=== PATIENT | female | born 2000 | race Caucasian/White ===

== ENCOUNTER 2021-08-27 14:54 | Observation (INO) | payer BC, OTHER ==
--- OUTSIDE RECORDS SUMMARY | 2021-08-27 14:56 | XMS REPORT | Continuity of Care Document ---
:2000 Author Organization [facility] t Address [address] [place] [address] Dr. Meneses[address] [place] [address] Care Team Providers Name Role Phone Pcp, Does Not Have A Primary Care Physician PANFILO Attending Clinician Unavailable Panfilo HEATON Attending Clinician Caroline IVORY Attending Clinician Doctor Unassigned, Name Attending Clinician Unavailable Payers Payer Name Policy Type Policy Number Effective Date Expiration Date S [facility] [id number] 2016 00:00:00 Problems Condition Condition Condition Status Onset Resolution Last Treating Co mments Source Name Details Category Date Date Treatment Clinician Date No known No known Disease Unive rs active active ity of problems problems [facility] Allergies, Adverse Reactions, Alerts Allergy Allergy Status Severity Reaction(s) Onset Inactive Treating Comm ents Source Name Type Date Date Clinician NO KNOWN Drug Active Univers ALLERGIE Class ity of S [facility] Social History Social Habit Start Date Stop Date Quantity Comments Source Tobacco use and 2021-07-16 2021-07-16 Never used [facility] exposure 00:00:00 00:00:00 [facility] Sex Assigned At [birth year] [facility] 00:00:00 00:00:00 [facility] Smoking Status Start Date Stop Date Source Unknown if ever smoked [facility] Never smoker [facility] Medications Ordered Filled Start Stop Current Ordering Indication Dosage Frequency Signature Comments Components Source Medication Medication Date Date Medication? Clinician (SIG) Name Name sulfamethox 2020-08- Yes [id number] 1{tbl} Take 1 Univers azole-trime 2-14 18 tablet by it y 00:00: 05:59 mouth 2 [place] (BACTRIM 00 :00 (two) Medical DS) 800-160 times Branch mg per daily for tablet 3 days. Vital Signs Vital Name Observation Time Observation Value Comments Source Systolic blood 2021-07-16 17:10:00 107 mm[Hg] Univer sity of pressure [facility] Diastolic blood 2021-07-16 17:10:00 72 mm[Hg] Unive rsity of [facility] Heart rate 2021-07-16 17:10:00 72 /min [facility] Body temperature 2021-07-16 17:10:00 36.72 Rashmi [facility] Respiratory rate 2021-07-16 17:10:00 16 /min [facility] Body height 2021-07-16 17:10:00 160 cm [facility] Body weight 2021-07-16 17:10:00 55.792 kg [facility] BMI 2021-07-16 17:10:00 21.79 kg/m2 [facility] Oxygen saturation in 2021-07-16 17:10:00 99 /min [facility] Arterial blood by [facility] Pulse oximetry Branch Procedures Procedure Date / Time Performed Performing Clinician Sour e POCT TEST 2021-07-16 17:28:00 Santa Whittaker [facility] POCT URINALYSIS 2021-07-16 17:12:00 Santa Whittaker [place] o f [facility] CONSENT/REFUSAL FOR 2021-07-16 16:54:13 Doctor Unassigned, No [facility] DIAGNOSIS AND Name Medical Branch TREATMENT ASSIGNMENT OF BENEFITS 2021-07-16 16:53:52 Doctor Unassigned, No [facility] Encounters Start End Encounter Admission Attending Care Care Encounter Source Date/Time Date/Time Type Type Clinicians Facility Department ID 2021-07-16 2021-07-16 Outpatient R [facility]ELAC[facility] [id number] [facility] 11:00:00 11:28:58 SANTA seng [facility] 2021-07-16 2021-07-16 Urgent aSnta Whittaker [facility] [id number] Univers 10:56:11 11:28:58 Care [facility] [id number] ity of [place] [id number] Patrice as JOSE?BLEA [phone] [place] CARLY [address] [facility] 2021-07-16 2021-07-16 Letter Doctor GARY [id number] Univers 00:00:00 00:00:00 (Out) Unassigned, AMPARO [id number] [facility] [id number] Patrice as [phone] [facility] [address] Branch 2021-07-16 2021-07-16 Orders Doctor GARY [id number] Univers 00:00:00 00:00:00 Only Unassigned, AMAPRO [id number] [facility] [id number] Patrice as [phone] [facility] [address] Results Test Description Test Time Test Comments Results Result Comments Source POCT TEST 2021-07-16 17:29:00 Test Item Value Reference Range Interpretation Comme nts POCT PREG (test code = 1605) Negative On board controls acceptable with C Line Yes (test code = 3574) POCT PREG LOT # (test code = 3575) POCT PREG TEST DATE (test code = 3576) TELMA (test code = TELMA) accurate development and interpretation of all internal controls Lab Interpretation (test code = 68830-2) [facility] URINALYSIS W SPECIFIC [id number] 17:13:00 Test Item Value Reference Range Interpretation Comments POCT U SP GRAV (test 1.00 mg/dl 1.005-1.025 A code = 3255) POCT PH U (test code = 7 mg/dl 5-8 3254) POCT U LEUK EST (test ++ Negative - code = 3263) Negative POCT U NIT (test code negative Negative - = 3262) Negative POCT U PROT (test code trace Negative - = 3259) Negative POCT U GLU (test code negative Negative - = 3256) Negative POCT U KETONE (test negative Negative - code = 3258) Negative POCT U UROBILI (test normal 0.2-1 code = 3260) POCT U BILI (test code negative Negative - = 3261) Negative POCT U BLD (test code about 250 Negative - = 3257) Negative POCT U COLOR (test yellow code = 3266) POCT U APPEAR (test cloudy code = 3267) TELMA (test code = TELMA) accurate development and interpretation of all internal controls Lab Interpretation Abnormal (test code = 40939-3) [facility]
[2021-08-27 15:38] LABS: Urine Blood 2+ (Negative); Urine Glucose Negative (Negative); Urine Protein Negative (Negative); Urine pH 5.5 (5.0-7.0)
[2021-08-27] MEDS ORDERED: ONDANSETRON 4 MG/2 ML VIAL ONE (15:48)
[2021-08-27] MEDS ORDERED: KETOROLAC 30 MG/ML INJ ONE (15:49)
[2021-08-27] MEDS ORDERED: NA CHLORIDE 0.9% 1,000 ML ONE ×2 (15:49→17:25)
[2021-08-27 16:02] LABS: Absolute Lymphocytes (CBC) 1.8 K/uL (0.7-4.9); Lymphocytes % 23.4 % (15.3-44.8); MPV 8.9 fL (7.6-11.3); RBC Red Blood Cell Count 4.11 M/uL (3.86-4.86)
[2021-08-27 16:16] LABS: Albumin 3.7 g/dL (3.4-5.0); Bilirubin Direct 0.1 mg/dL (0-0.2); Bilirubin Total 0.4 mg/dL (0.2-1.0); Potassium 3.4 mmol/L (3.5-5.1)
--- NOTE | 2021-08-27 16:21 | RAD REPORT ---
EXAM DESCRIPTION: CTAbdomen Pelvis W Contrast - 08/27/2021 4:13 pm CLINICAL HISTORY: Abdominal pain. ABD PAIN COMPARISON: No comparisons TECHNIQUE: Biphasic CT imaging of the abdomen and pelvis was performed with 100 ml non-ionic IV cont rast. All CT scans are performed using dose optimization technique as appropriate and may include automated exposure control or mA/KV adjustment according to patient size. FINDINGS: The lung bases are clear. The liver, spleen, pancreas, adrenal glands and kidneys are within normal limits. No bowel obstruction, free air, free fluid or abscess. The appendix is dilated to 10 mm in the right lower quadrant likely representing acute appendicitis. No evidence of significant lymphadenopathy. No suspicious bony findings. IMPRESSION: Early acute appendicitis suspected.
[2021-08-27] MEDS ORDERED: METRONIDAZOLE 500mg IVPB 500 MG/100 ML BAG IV ONE (17:25)
--- NOTE | 2021-08-27 17:45 | ER ---
Nurse's Notes [facility] Name: Mara Ramos Age: 20 yrs Sex: Female : 2000 Arrival Date: 08/27/2021 Time: 14:57 Bed 19 Private MD: Diagnosis: Unspecified acute appendicitis Presentation: 08/27 15:19 Chief complaint: Patient states: Pt presents to ed for c/o RLQ pain that began at 0400 ab2 this morning. Pt took ibuprrofen DIRECTOR OF ACADEMIC. Pt denies n/v/d. Coronavirus screen: Vaccine status: Patient reports being unvaccinated. Client denies travel out of the [place] in the last 14 days. At this time, the client does not indicate any symptoms associated with coronavirus-19. Ebola Screen: Patient negative for fever greater than or equal to 101.5 degrees Fahrenheit, and additional compatible Ebola Virus Disease symptoms Patient denies exposure to infectious person. Patient denies travel to an Ebola-affected area in the 21 days before illness onset. No symptoms or risks identified at this time. Initial Sepsis Screen: Does the patient meet any 2 criteria? No. Patient's initial sepsis screen is negative. Does the patient have a suspected source of infection? No. Patient's initial sepsis screen is negative. Risk Assessment: Do you want to hurt yourself or someone else? Patient reports no desire to harm self or others. Onset of symptoms was August 27, 2021 at 04:00. 15:19 Method Of Arrival: Ambulatory ab2 15:19 Acuity: NATHALIE 3 ab2 Triage Assessment: 15:22 General: Appears in no apparent distress. comfortable, Behavior is calm, cooperative, ab2 appropriate for age. 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 - Social history:: Smoking status: Patient denies any tobacco usage or history of. Screenin:22 Abuse screen: Denies threats or abuse. Denies injuries from another. Nutritional ab2 screening: No deficits noted. Tuberculosis screening: No symptoms or risk factors identified. Fall Risk None identified. Assessment: 16:04 General: Appears in no apparent distress. comfortable, Behavior is calm, cooperative, jd3 appropriate for age. Pain: Complains of pain in right lower quadrant Quality of pain is described as aching, tender. Neuro: Level of Consciousness is awake, alert, obeys commands, Oriented to person, place, time, situation. Cardiovascular: Denies chest pain, Capillary refill < 3 seconds Patient's skin is warm and dry. Respiratory: Airway is patent Respiratory effort is even, unlabored, Respiratory pattern is regular, symmetrical, Denies cough, shortness of breath. GI: Abdomen is flat, non-distended, Bowel sounds present X 4 quads. Abd is soft X 4 quads Abdomen is tender to palpation in right lower quadrant Reports lower abdominal pain, Patient currently denies constipation, diarrhea, nausea, vomiting. : No signs and/or symptoms were reported regarding the genitourinary system. EENT: No signs and/or symptoms were reported regarding the EENT system. Derm: Skin is intact, Skin is dry, Skin is normal, Skin temperature is warm. Musculoskeletal: Circulation, motion, and sensation intact. Range of motion: intact in all extremities. 17:32 Reassessment: Patient appears in no apparent distress at this time. No changes from jd3 previously documented assessment. Patient and/or family updated on plan of care and expected duration. Pain level reassessed. Patient is alert, oriented x 3, equal unlabored respirations, skin warm/dry/pink. 19:37 General: Appears in no apparent distress. comfortable, Behavior is calm, cooperative, al4 appropriate for age. Pain: Complains of pain in right lower quadrant. Neuro: Level of Consciousness is awake, alert, obeys commands, Oriented to person, place, time, situation. Cardiovascular: Capillary refill < 3 seconds Patient's skin is warm and dry. Respiratory: Airway is patent Respiratory effort is even, unlabored, Respiratory pattern is regular, symmetrical, Denies cough, shortness of breath. GI: Abdomen is flat, non-distended. : No signs and/or symptoms were reported regarding the genitourinary system. EENT: No signs and/or symptoms were reported regarding the EENT system. Derm: Skin is intact, Skin is dry, Skin is normal, Skin temperature is warm. Musculoskeletal: Circulation, motion, and sensation intact. Range of motion: intact in all extremities. Vital Signs: 15:19 BP 119 / 67; Pulse 94; Resp 16; Temp 97.9; Pulse Ox 100% ; Weight 54.43 kg; Height 5 ab2 ft. 3 in. (160.02 cm); Pain 7/10; 17:33 BP 114 / 71; Pulse 86; Resp 16 S; Pulse Ox 100% on R/A; jd3 18:43 BP 110 / 66; Pulse 71; Resp 18 S; Pulse Ox 99% on R/A; jd3 19:30 BP 106 / 67; Pulse 67; Resp 18; Pulse Ox 98% ; al4 15:19 Body Mass Index 21.26 (54.43 kg, 160.02 cm) ab2 ED Course: 14:57 Patient arrived in ED. as 15:21 Triage completed. ab2 15:22 Arm band placed on right wrist. ab2 15:31 [facility]C [facility] kb 15:31 Mariah Christina MD is Attending Physician. kb 15:44 Wyatt Grimes RN is Primary Nurse. jd3 16:04 Inserted saline lock: 22 gauge in left antecubital area, using aseptic technique. jd3 16:05 Patient has correct armband on for positive identification. Bed in low position. Call jd3 light in reach. Side rails up X 1. Adult w/ patient. Pulse ox on. NIBP on. 16:13 CT Abd/Pelvis - IV Contrast Only In Process Unspecified. EDMS 17:43 Francisco Guaman MD is Hospitalizing Provider. kb 20:00 No provider procedures requiring assistance completed. Patient admitted, IV remains in al4 place. Administered Medications: 16:04 Drug: NS 0.9% 1000 ml Route: IV; Rate: 1000 ml; Site: left antecubital; jd3 17:00 Follow up: Response: No adverse reaction; IV Status: Completed infusion jd3 16:04 Drug: Zofran (Ondansetron) 4 mg Route: IVP; Site: left antecubital; jd3 17:00 Follow up: Response: No adverse reaction jd3 16:04 Drug: Ketorolac 15 mg Route: IVP; Site: left antecubital; jd3 17:00 Follow up: Response: No adverse reaction jd3 17:31 Drug: Flagyl (metroNIDAZOLE) 500 mg Volume: 100 ml; Route: IVPB; Rate: 200 ml/hr; jd3 Infused Over: 30 mins; Site: left antecubital; 18:49 Follow up: Response: No adverse reaction; IV Status: Completed infusion jd3 17:32 Drug: NS 0.9% 1000 ml Route: IV; Rate: 125 ml/hr; Site: left antecubital; jd3 18:49 Follow up: Response: No adverse reaction; IV Status: Infusion continued upon admission jd3 18:41 Drug: Mefoxin (cefOXitin) 1 grams Route: IVPB; Infused Over: 30 mins; Site: left jd3 antecubital; Outcome: 17:44 Decision to Hospitalize by Provider. kirill 20:00 Admitted to Med/surg accompanied by nurse. margot 20:00 Admitted to Med/surg Report called to report called by CACHOROR Mcfarlane 20:00 Condition: stable 20:00 Instructed on the need for admit. 20:08 Patient left the ED. mw2 Signatures: Dispatcher [employer] EDMI Antonina Lam FNP-C FNP-Gretchen Atkins Jonathon, RN RN Khadra Rooney mw2 Ryland Alexander al4 Ryland Anderson
--- NOTE | 2021-08-27 17:45 | EDPHYS ---
Physician Documentation [facility] Name: Mara Ramos Age: 20 yrs Sex: Female : 2000 Arrival Date: 08/27/2021 Time: 14:57 Bed 19 Private MD: ED Physician Mariah Christina HPI: 08/27 16:19 This 20 yrs old Female presents to ER via Ambulatory with complaints of Abdominal Pain. kb 16:19 The patient presents with abdominal pain right lower quadrant. Onset: The kb symptoms/episode began/occurred last night. The symptoms do not radiate. Associated signs and symptoms: none. The symptoms are described as constant. Modifying factors: The symptoms are alleviated by nothing, the symptoms are aggravated by movement, pressure, walking. Severity of pain: At its worst the pain was moderate in the emergency department the pain is unchanged. The patient has not experienced similar symptoms in the past. The patient has not recently seen a physician. 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 - Social history:: Smoking status: Patient denies any tobacco usage or history of. ROS: 16:18 Constitutional: Negative for fever, chills, and weight loss. kb 16:18 Abdomen/GI: Positive for abdominal pain, Negative for nausea, vomiting, and diarrhea. 16:18 All other systems are negative. Exam: 16:18 Constitutional: This is a well developed, well nourished patient who is awake, alert, kb and in no acute distress. Head/Face: Normocephalic, atraumatic. ENT: Moist Mucous membranes Cardiovascular: Regular rate and rhythm with a normal S1 and S2. No gallops, murmurs, or rubs. No pulse deficits. Respiratory: Respirations even and unlabored. No increased work of breathing. Talking in full sentences Skin: Warm, dry with normal turgor. Normal color. MS/ Extremity: Pulses equal, no cyanosis. Neurovascular intact. Full, normal range of motion. Neuro: Awake and alert, GCS 15, oriented to person, place, time, and situation. Moves all extremities. Normal gait. Psych: Awake, alert, with orientation to person, place and time. Behavior, mood, and affect are within normal limits. 16:18 Abdomen/GI: Inspection: abdomen appears normal, Bowel sounds: normal, in all quadrants, Palpation: soft, in all quadrants, mild abdominal tenderness, in the right upper quadrant and left lower quadrant, moderate abdominal tenderness, in the right lower quadrant. Vital Signs: 15:19 BP 119 / 67; Pulse 94; Resp 16; Temp 97.9; Pulse Ox 100% ; Weight 54.43 kg; Height 5 ab2 ft. 3 in. (160.02 cm); Pain 7/10; 17:33 BP 114 / 71; Pulse 86; Resp 16 S; Pulse Ox 100% on R/A; jd3 18:43 BP 110 / 66; Pulse 71; Resp 18 S; Pulse Ox 99% on R/A; jd3 19:30 BP 106 / 67; Pulse 67; Resp 18; Pulse Ox 98% ; al4 15:19 Body Mass Index 21.26 (54.43 kg, 160.02 cm) ab2 MDM: 15:31 Patient medically screened. kb 16:18 Data reviewed: vital signs, nurses notes. Data interpreted: Pulse oximetry: on room air kb is 100 %. Interpretation: normal. 16:29 Counseling: I had a detailed discussion with the patient and/or guardian regarding: the historical points, exam findings, and any diagnostic results supporting the discharge/admit diagnosis, lab results, radiology results, the need for further work-up and treatment in the hospital. Physician consultation: Francisco Guaman MD was called at 16:29. 16:50 ED course: Last meal approx 1430. kb 17:10 Physician consultation: Francisco Guaman MD paged again. kb 17:43 Physician consultation: Francisco Guaman MD was contacted at 17:43, regarding admission, to the medical/surgical unit. patient's condition, and will see patient in OR. 17:47 ED course: Discussed with housecleaner floor. Dr Guaman will do surgery at 0600 tomorrow morning. . 08/27 15:31 Order name: Basic Metabolic Panel; Complete Time: 16:18 kb 08/27 15:31 Order name: CBC with Diff; Complete Time: 16:15 kb 08/27 15:31 Order name: Hepatic Function; Complete Time: 16:18 kb 08/27 15:31 Order name: Lipase; Complete Time: 16:18 kb 08/27 15:37 Order name: Urine Dipstick-Ancillary; Complete Time: 15:40 EDMS 08/27 15:38 Order name: Urine --Ancillary (enter results); Complete Time: 15:44 bd 08/27 15:37 Order name: CT Abd/Pelvis - IV Contrast Only; Complete Time: 16:25 kb 08/27 17:15 Order name: COVID-19 SARS RT PCR (Document "Date of Onset" if Symptomatic); Complete kb Time: 18:37 08/27 15:31 Order name: IV Saline Lock; Complete Time: 16:04 kb 08/27 15:31 Order name: Labs collected and sent; Complete Time: 16:04 kb 08/27 15:37 Order name: Urine Dipstick-Ancillary (obtain specimen); Complete Time: 15:44 kb 08/27 15:37 Order name: Urine Test (obtain specimen); Complete Time: 15:44 kb Administered Medications: 16:04 Drug: NS 0.9% 1000 ml Route: IV; Rate: 1000 ml; Site: left antecubital; jd3 17:00 Follow up: Response: No adverse reaction; IV Status: Completed infusion jd3 16:04 Drug: Zofran (Ondansetron) 4 mg Route: IVP; Site: left antecubital; jd3 17:00 Follow up: Response: No adverse reaction jd3 16:04 Drug: Ketorolac 15 mg Route: IVP; Site: left antecubital; jd3 17:00 Follow up: Response: No adverse reaction jd3 17:31 Drug: Flagyl (metroNIDAZOLE) 500 mg Volume: 100 ml; Route: IVPB; Rate: 200 ml/hr; jd3 Infused Over: 30 mins; Site: left antecubital; 18:49 Follow up: Response: No adverse reaction; IV Status: Completed infusion jd3 17:32 Drug: NS 0.9% 1000 ml Route: IV; Rate: 125 ml/hr; Site: left antecubital; jd3 18:49 Follow up: Response: No adverse reaction; IV Status: Infusion continued upon admission jd3 18:41 Drug: Mefoxin (cefOXitin) 1 grams Route: IVPB; Infused Over: 30 mins; Site: left jd3 antecubital; Disposition: 08/28 04:40 Co-signature as Attending Physician, Mariah Christina MD I agree with the assessment and sp3 plan of care. Disposition Summary: 08/27/21 17:44 Hospitalization Ordered Hospitalization Status: Observation kb Provider: Francisco Guaman Location: Telemetry/MedSurg (observation) kb Condition: Stable kb Problem: new kb Symptoms: are unchanged kb Bed/Room Type: Standard Room Assignment: 414(08/27/21 18:39) bd Diagnosis - Unspecified acute appendicitis kb Forms: - Medication Reconciliation Form kb - SBAR form kb Signatures: Dispatcher [employer] EDMS Antonina Lam, LEAD HOUSEKEEPER-C LEAD HOUSEKEEPER-CkMilli Robledo Jonathon, RN RN Mariah Tucker MD MD sp3 Ryland Anderson2 Corrections: (The following items were deleted from the chart) 08/27 16:19 16:18 Abdomen/GI: Inspection: abdomen appears normal, Bowel sounds: normal, in all kb quadrants, Palpation: soft, in all quadrants, moderate abdominal tenderness, in the right lower quadrant, kb 18:39 17:44 kb bd
[2021-08-27] MEDS ORDERED: CEFOXITIN SODIUM 1 GM/VIAL ONE (18:14)
[2021-08-27] MEDS ORDERED: NA CHLORIDE 0.9% 50 ML ONE (18:15)
[2021-08-27] MEDS ORDERED: MORPHINE 4 MG/ML SYR IV PRN (20:27)
[2021-08-27] MEDS ORDERED: ACETAMINOPHEN 500 MG TAB PO PRN (20:27)
[2021-08-27] MEDS ORDERED: ONDANSETRON 4 MG/2 ML VIAL IV PRN (20:27)
[2021-08-27 21:13] VITALS: BMI 21.2
[2021-08-27] MEDS: NA CHLORIDE 0.9% 1,000 ML IV SCH (21:50)
[2021-08-28] MEDS: METRONIDAZOLE 500mg IVPB 500 MG/100 ML BAG IV SCH ×2 (00:40→08:31)
[2021-08-28] MEDS: CEFOXITIN 1 GM in NA CHLORIDE 0.9% 50 ML IVPB SCH ×3 (01:55→12:53)
[2021-08-28 03:48] LABS: Absolute Lymphocytes (CBC) 2.5 K/uL (0.7-4.9); Lymphocytes % 51.4 % (15.3-44.8); MPV 9.3 fL (7.6-11.3); RBC Red Blood Cell Count 3.55 M/uL (3.86-4.86)
[2021-08-28] MEDS: NA CHLORIDE 0.9% 1,000 ML IV SCH ×2 (04:27→12:27)
[2021-08-28 05:04] LABS: Potassium 4.1 mmol/L (3.5-5.1)
[2021-08-28] MEDS ORDERED: Ringers Lactate 1,000 ML IV ONE (05:20)
[2021-08-28] MEDS ORDERED: GLYCOPYRROLATE 0.2 MG/ML SYR ONE (05:34)
[2021-08-28] MEDS ORDERED: MIDAZOLAM HCL 2 MG/2 ML INJ ONE (05:34)
[2021-08-28] MEDS ORDERED: FENTANYL CITR 100 MCG/2 ML ONE (05:34)
[2021-08-28] MEDS ORDERED: propofoL 200 MG/20 ML VIAL IV ONE (05:34)
[2021-08-28] MEDS ORDERED: ROCURONIUM 50 MG/5 ML VIAL IV ONE (05:35)
[2021-08-28] MEDS ORDERED: NEOSTIGMINE 1 MG/ML -5 ML ONE (05:35)
[2021-08-28] MEDS ORDERED: dexAMETHasone 4 MG/ML VIAL ONE (05:35)
[2021-08-28] MEDS ORDERED: KETOROLAC 30 MG/ML INJ ONE (05:35)
[2021-08-28] MEDS ORDERED: ONDANSETRON 4 MG/2 ML VIAL ONE (05:35)
[2021-08-28] MEDS ORDERED: LIDOCAINE 1% MPF 5 ML VIAL ONE (05:35)
[2021-08-28] MEDS ORDERED: Mastisol Adhesive Liq ONE (06:51)
--- NOTE | 2021-08-28 07:03 | PREOPHP ---
Date of Admission: 08/27/2021 Chief Complaint: Abdominal pain. History Of Present Illness: The patient is a 20-year-old female who comes in with 24-hour history of diffuse periumbilical abdominal pain localizing to the right lower quadrant. Denies any nausea, vom iting. Mild anorexia. No diarrhea or constipation. No blood in her stool. No dysuria or hematuria . No sore throat, runny nose, cough, headaches, or dizziness. No chest pain. No fever or chills. Please note, the patient is asymptomatic but is COVID positive. Past Medical History: Negative. Past Surgical History: [place] teeth surgery. Allergies: NO ALLERGIES. Social History: The patient does not smoke. Drinks occasionally. Family History: Noncontributory. Physical Examination: Vital Signs: Stable. She is currently afebrile. General: She is awake, alert, and oriented x3. Head and Neck: Cranial nerves 2 through 12 are grossly within normal limits. No neck masses. No JV D. Throat clear. Neck is supple. Chest: Clear. Heart: S1, S2. Abdomen: Soft, nondistended. Positive bowel sounds. Positive Rovsing sign. Positive right lower q uadrant tenderness with rebound. No rigidity or guarding. Extremities: Adequately perfused. Nontender. Neuro: Nonfocal. Diagnostic Data: CT of the abdomen and pelvis consistent with early acute appendicitis with dilated appendix with mild inflammatory changes around it. White count is normal. Remainder of the labs yasir cked. The patient is COVID positive. Assessment: Acute appendicitis, is asymptomatic, COVID-positive patient. Recommendations: We will proceed with laparoscopic appendectomy, possible open. The patient underst ands the risks, benefits, and alternatives and agrees to the procedure. FALGUIN/MODL Voice ID: [id number]
--- NOTE | 2021-08-28 07:04 | P.OP ---
Acupressure Therapist: NONE,NONE Preoperative diagnosis: Acute Appendicitis Postoperative diagnosis: same Primary procedure: Lap Appy Anesthesia: General Estimated blood loss: min Specimen: Appy Findings: as above Complications: None Transferred to: Recovery Room Condition: Good
[2021-08-28] MEDS ORDERED: ONDANSETRON 4 MG/2 ML VIAL IV PRN (07:15)
[2021-08-28] MEDS ORDERED: HYDROMORPHONE HCL 1 MG/ML INJ IV PRN (07:15)
[2021-08-28] MEDS ORDERED: HYDROCODONE/APAP 7.5/325 MG TAB PO PRN (07:15)
[2021-08-28 07:33] VITALS: O2SAT 100
--- NOTE | 2021-08-28 07:57 | OP ---
Date of Procedure: 08/28/2021 Surgeon: Francisco Guaman MD Central Service Tech: None specimen. Preoperative Diagnosis: Acute appendicitis. Postoperative Diagnosis: Acute appendicitis. Procedure: Laparoscopic appendectomy. Estimated Blood Loss: Minimal. Specimen: Appendix. Finding: As above. Anesthesia: General. Complications: None. Disposition: Patient tolerated the procedure in stable condition, taken to Recovery in good general condition. Procedure In Detail: Patient was brought to the OR and placed in supine position. General anesthesi a was begun. Patient was prepped and draped in usual sterile fashion. Marcaine 0.5% was infiltrated locally. A 15-blade was used to make a 1 cm infraumbilical midline incision. Subcutaneous tissue w as divided. Fascia was identified and divided. #1 Vicryl stay suture was placed. Peritoneal cavity was entered with sharp and blunt dissection. 12 mm trocar was placed into the peritoneal cavity und er direct vision. Pneumoperitoneum was established and then two 5 mm trocars were placed, 1 in the s uprapubic region, 1 in the left lower quadrant. Laparoscopy revealed acute appendicitis was dilated and injected with minimal exudate present on the appendix in the right lower quadrant. Appendix was grasped. Base of the appendix on the cecum was clearly identified. Endo-MARSHAL stapling device was uti lized to divide both structures and then the appendix through the umbilicus via an EndoCatch bag. Th e right lower quadrant. There was a minimal oozing noted from the appendiceal artery and vascular cl ips placed until no further oozing or evidence of bowel injury noted. Subsequently, no other evidenc e of disease was identified. Liver, gallbladder, and intestines were all within normal limits as wer e the pelvic structures. Subsequently, all trocars were removed under direct vision. Stay sutures w ere tied to each other to reapproximate the fascial defect. Subcutaneous wounds were irrigated. Ble eding was controlled with cautery. Chromic was used to approximate the subcutaneous tissue and close the skin. Sterile dressing was applied. Patient was awakened and taken to Recovery in good general condition. /MODL Voice ID: [id number] Report ID: [id number]
[2021-08-28 12:44] VITALS: BP 121/68; TEMP 97.6
--- NOTE | 2021-08-29 03:54 | DS ---
Date of Discharge: 08/28/2021 Admitting Diagnosis: Acute appendicitis. Discharge Diagnosis: Acute appendicitis. Procedure Performed: Laparoscopic appendectomy. Hospital Course: The patient is a 20-year-old female, who underwent the aforementioned procedure. P ostoperatively, she is tolerating diet, ambulating, pain control on p.o. pain medication, afebrile. Therefore, the patient will be discharged to home. Disposition: Home. Condition: Stable. Discharge Instructions: Resume home medications and diet. Activity as tolerated. No heavy lifting. Remove outer dressing in 2 days. Shower. Keep wound clean and dry. Keep Steri-Strips on at all t imes. Follow up in my office 1 week. Call for appointment. FALGUNI/KENDRA Voice ID: [id number] Report ID: [id number]
== END 2021-08-28 16:04 | disposition home or self-care (01) ==
LOC: ER 14:54 → ERHOLD 17:45 → 4TH 20:08
PROVIDERS: ADMIT Surgery; ATTEND Surgery
PROC: 0DTJ4ZZ Resection of Appendix, Percutaneous Endoscopic Approach (ICD-10-PCS; principal; 2021-08-27)
DX: K35.80 Unspecified acute appendicitis (principal); U07.1 COVID-19; Z20.822 Contact with and (suspected) exposure to COVID-19
CPT/HCPCS: 85025 ×2; 80048 ×2; 36415; 81025; 80076; 88304; 81003; 83690; 74177; 44970; U0003; Q9967; J2704; J1100; J2250; J3010; J2710; J7120; J7030 ×2; J0694; J2405 ×2; 96361; 96365; 96375; 99285; G0378

== ENCOUNTER 2023-03-30 16:40 | Emergency (ER) | payer BC ==
--- OUTSIDE RECORDS SUMMARY | 2023-03-30 16:45 | XMS REPORT | Continuity of Care Document ---
:2000 Author Organization [facility] t Address [address] [place] [address] [address] [place] [address] Care Team Providers Name Role Phone PCP, PATIENT DOES NOT HAVE A Primary Care Physician UnavailJEANETTE Chauhan III Attending Clinician Unavailable King MERE MD, James C Attending Clinician Unknown, Attending Attending Clinician Unavailable Doctor Unassigned, [place] Attending Clinician Unavailable RADHA ALCALA Attending Clinician Unavailable Radha Browne Attending Clinician Solo Teague PA-C Attending Clinician Maribell Lindsey Attending Clinician MARIBELL ZARCO Attending Clinician Unavailable SANTA WHITTAKER Attending Clinician Unavailable Santa Whittaker MD Attending Clinician Tenisha Gr Attending Clinician Payers Payer Name Policy Type Policy Number Effective Date Expiration Date [facility] [id number] 2016 00:00:00 Problems Condition Condition Condition Status Onset Resolution Last Treating Co mments Source Name Details Category Date Date Treatment Clinician Date No known No known Disease Unive rs active active ity of problems problems [facility] Allergies, Adverse Reactions, Alerts Allergy Allergy Status Severity Reaction(s) Onset Inactive Treating Comm ents Source Name Type Date Date Clinician NO KNOWN Drug Active Univers ALLERGIE Class ity of S [facility] Social History Social Habit Start Date Stop Date Quantity Comments Source Exposure to 2022-09-30 2022-10-10 Not sure University SARS-CoV-2 00:00:00 11:09:00 [place] [facility] (event) [place] Tobacco use and 2021-07-16 2021-07-16 Smokeless tobacco Un iversity of exposure 00:00:00 00:00:00 non-user [facility] Sex Assigned At [birth year] Universit y of 00:00:00 00:00:00 [facility] Smoking Status Start Date Stop Date Source Never smoked tobacco [facility] Medications Ordered Filled Start Stop Current Ordering Indication Dosage Frequency Signature Comments Components Source Medication Medication Date Date Medication? Clinician (SIG) Name Name predniSONE Yes [id number] 40mg Take 2 Univers 20 mg 3-10 tablets by ity of tablet 00:00: mouth in [place] 00 the Medical morning. Branch For 7 days then 1 / day for 7 days sulfamethox 2021-08- No [id number] 1{tbl} Take 1 Univers azole-trime 0-21 10-29 tablet by it y of thoprim 00:00: 04:59 mouth in [place] (BACTRIM 00 :00 the Medical ) 800-160 morning Branc h mg per and 1 tablet tablet in the evening. Do all this for 7 days. sulfamethox 2021- No [id number] 1{tbl} Take 1 Univers azole-trime 7-19 07-27 tablet by it y of thoprim 00:00: 04:59 mouth in [place] (BACTRIM 00 :00 the Medical ) 800-160 morning Branc h mg per and 1 tablet tablet in the evening. Do all this for 7 days. WINONA Yes 1{tbl} Take 1 Univ ers FE 1 mg-20 6-11 tablet by ity of mcg (24)/75 00:00: mouth [place] mg (4) per 00 daily. Medical tablet [facility] Yes 1{tbl} Take 1 Univ ers FE 1 mg-20 6-11 tablet by ity of mcg (24)/75 00:00: mouth [place] mg (4) per 00 daily. Medical tablet [facility] Yes 1{tbl} Take 1 Univ ers FE 1 mg-20 6-11 tablet by ity of mcg (24)/75 00:00: mouth [place] mg (4) per 00 daily. Medical tablet Branch EDIN 24 Yes 1{tbl} Take 1 Univ ers FE 1 mg-20 6-11 tablet by ity of mcg (24)/75 00:00: mouth [place] mg (4) per 00 daily. Medical tablet Branch bromphenira 2021- No [id number] 5mL Take 5 mL Univers mine-pseudo 12-1119 by mouth 4 i ty of ephedrine-D 00:00: 04:59 (four) Pat[place] as M (BROMFED 00 :00 times Medical DM) 230-10 daily as Bran ch mg/5 mL needed for syrup Congestion /Allergies for up to 7 days. oseltamivir 2021- No [id number] 75mg Take 1 Univers (TAMIFLU) 12-11 capsule by ity of 75 mg 00:00: 04:59 mouth 2 [place] capsule 00 :00 (two) Medical times [place] daily for 5 days. Vital Signs Vital Name Observation Time Observation Value Comments Source Systolic blood 2022-10-10 17:21:00 127 [facility]Hg[facility] 2022-10-10 17:21:00 81 mm[Hg] [facility] Heart rate 2022-10-10 17:21:00 80 /min [facility] Body temperature 2022-10-10 17:21:00 37.06 Rashmi [facility] Respiratory rate 2022-10-10 17:21:00 16 /min [facility] Body weight 2022-10-10 17:21:00 54.386 kg [facility] BMI 2022-10-10 17:21:00 21.24 kg/m2 [facility] Oxygen saturation in 2022-10-10 17:21:00 98 /min [facility] Arterial blood by [facility] Pulse oximetry Branch Respiratory rate 2022-05-23 15:01:00 16 /min [facility] Body height 2022-05-23 15:01:00 160 cm [facility] Body weight 2022-05-23 15:01:00 55.293 kg [facility] BMI 2022-05-23 15:01:00 21.59 kg/m2 [facility] [place] [facility] Oxygen saturation in 2022-05-23 15:01:00 98 /min University of Arterial blood by [facility] Pulse oximetry Branch Systolic blood 2022-05-23 15:01:00 125 mm[Hg] Univer sity of pressure [place] [facility] Diastolic blood 2022-05-23 15:01:00 81 mm[Hg] Unive rsity of pressure [place] [facility] Heart rate 2022-05-23 15:01:00 97 /min [facility] [place] [facility] Body temperature 2022-05-23 15:01:00 36.89 Rashmi Univ ers[facility] [place] [facility] Systolic blood 2022-02-18 22:17:00 116 mm[Hg] Univer sity of pressure [place] [facility] Diastolic blood 2022-02-18 22:17:00 81 mm[Hg] Unive rsity of pressure [place] [facility] Heart rate 2022-02-18 22:17:00 82 /min [facility] [place] [facility] Body temperature 2022-02-18 22:17:00 37.06 Rashmi [facility] [place] [facility] Body height 2022-02-18 22:17:00 160 cm [facility] [place] [facility] Body weight 2022-02-18 22:17:00 54.341 kg [facility] [place] [facility] BMI 2022-02-18 22:17:00 21.22 kg/m2 [facility] [place] [facility] Oxygen saturation in 2022-02-18 22:17:00 98 /min University of Arterial blood by [facility] Pulse oximetry Branch Systolic blood 2021-12-11 18:41:00 116 mm[Hg] Univer sity of pressure [place] [facility] Diastolic blood 2021-12-11 18:41:00 77 mm[Hg] Unive rsity of pressure [place] [facility] Heart rate 2021-12-11 18:41:00 105 /min [facility] [place] [facility] Body temperature 2021-12-11 18:41:00 37.78 Rashmi [facility] [place] [facility] Body height 2021-12-11 18:41:00 160 cm [facility] [place] [facility] Body weight 2021-12-11 18:41:00 56.291 kg [facility] [place] [facility] BMI 2021-12-11 18:41:00 21.98 kg/m2 [facility] Oxygen saturation in 2021-12-11 18:41:00 98 /min University Arterial blood by [facility] Pulse oximetry [place] Procedures Procedure Date / Time Performed Performing Clinician [facility] angel ASSIGNMENT OF BENEFITS 2022-10-10 17:11:52 Doctor Unassigned, No [facility] POCT TEST 2022-05-23 15:09:00 Nicole [facility] POCT URINALYSIS 2022-05-23 15:07:00 Nicole [facility] o f [facility] POCT TEST 2022-02-18 22:25:00 [facility] POCT URINALYSIS 2022-02-18 22:25:00 [facility] o [facility] POCT MOLECULAR FLU 2021-12-11 18:55:00 Maribell Zarco [facility] Encounters Start End Encounter Admission Attending Care Care Encounter Source Date/Time Date/Time Type Type Clinicians Facility Department ID 2022-10-10 2022-10-10 Outpatient R KING MERE, [facility] [id number] Univers 11:20:00 11:34:29 JEANETTE aldridge [facility] 2022-10-10 2022-10-10 Urgent Jeanette Villavicencio [facility] [id number] Univers 11:20:00 11:34:29 Care Unknown, Attending HEALTH [id number] ity of [place] [id number] Patrice as JOSE?BLEA [phone] [address] MEDICAL OFFICE BUILDING 2022-10-10 2022-10-10 Orders Doctor GARY [id number] Univers 00:00:00 00:00:00 Only Unassigned, AMPARO 350.1.13.10 [facility] [id number] Patrice as [phone] [place] [address] Branch 2022-05-23 2022-05-23 Outpatient R NICOLE [facility] [id number] Univers 09:40:00 10:12:23 RADHA aldridge [facility] 2022-05-23 2022-05-23 Urgent Radha Alcala [facility] [id number] Univers 09:40:00 10:00:00 Care Unknown, Attending [facility] 350.1.13.10 ity of [place] 4.2.7.2.686 Patrice as JOSE?BLEA [id number] [facility] [address] [place] MEDICAL OFFICE [facility] 2022-02-18 2022-02-18 Outpatient R NICOLE [facility] [id number] Univers 17:00:00 17:44:28 RADHA seng [facility] 2022-02-18 2022-02-18 Urgent Radha Alcala [facility] [id number] [id number] Univers 17:00:00 17:15:00 Care Unknown, Attending HEALTH 350.1.13.10 ity of [place] 4.2.7.2.686 Patrice as JOSE?BLEA [phone] [facility] [address] [place] MEDICAL OFFICE [facility] 2021-12-11 2021-12-11 Office Solo Teague [facility] [id number] Univers 13:30:00 14:07:09 Visit Maribell Zarco [facility] 350.1.13.10 ity of [place] 4.2.7.2.686 Patrice as JOSE?BLEA [phone] [facility] [address] [place] MEDICAL OFFICE [facility] 2021-12-11 2021-12-11 Outpatient R LEANDRA [facility] [id number] Univers 13:30:00 14:07:09 MARIBELL aldridge [facility] 2021-12-11 2021-12-11 Outpatient R LEANDRA [facility] [id number] Univers 13:30:00 13:30:00 MARIBELL aldridge [facility] 2021-07-16 2021-07-16 Outpatient R PANFILO [facility] [id number] Univers 11:00:00 11:28:58 SANTA aldridge [facility] 2021-07-16 2021-07-16 Urgent Santa Whittaker [facility] [id number] Univers 10:56:11 11:28:58 Care [facility] [id number] ity of [place] [id number] Patrice as JOSE?BLEA [phone] Mi niles CARLY [address] [place] MEDICAL OFFICE BUILDING 2021-07-16 2021-07-16 Letter Doctor GARY [id number] [place] [address] 00:00:00 00:00:00 (Out) Unassigned, AMPARO 350..13.10 ity of [place] [facility] [id number] Pat[place] as [phone] [address] Results Test Description Test Time Test Comments Results Result Comments Source POCT TEST 2022-05-23 15:09:00 Test Item Value Reference Range Interpretation Comme nts POCT PREG (test code = 1605) Negative On board controls acceptable with C Line Yes (test code = 3574) POCT PREG LOT # (test code = 3575) POCT PREG TEST DATE (test code = 3576) TELMA (test code = TELMA) accurate development and interpretation of all internal controls Lab Interpretation (test code = 55182-4) Normal [facility] W SPECIFIC [id number] 15:08:00 Test Item Value Reference Range Interpretation Comments POCT U SP GRAV (test 1.000 mg/dl 1.005-1.025 A code = 3255) POCT PH U (test code = 7 mg/dl 5-8 3254) POCT U LEUK EST (test ++ Negative - code = 3263) Negative POCT U NIT (test code neg Negative - = 3262) Negative POCT U PROT (test code trace Negative - = 3259) Negative POCT U GLU (test code normal Negative - = 3256) Negative POCT U KETONE (test neg Negative - code = 3258) Negative POCT U UROBILI (test normal 0.2-1 code = 3260) POCT U BILI (test code neg Negative - = 3261) Negative POCT U BLD (test code about 250 Negative - = 3257) Negative POCT U COLOR (test light yellow code = 3266) POCT U APPEAR (test clear code = 3267) TELMA (test code = TELMA) accurate development and interpretation of all internal controls Lab Interpretation Abnormal (test code = 56896-1) [facility] URINALYSIS W SPECIFIC [id number] 22:25:00 Test Item Value Reference Range Interpretation Comments POCT U SP GRAV (test code = 1.010 mg/dl 1.005-1.025 3255) POCT PH U (test code = 3254) 7 mg/dl 5-8 POCT U LEUK EST (test code = ++ Negative - Negative A 3263) POCT U NIT (test code = 3262) - Negative - Negative POCT U PROT (test code = trace Negative - Negative A 3259) POCT U GLU (test code = 3256) - Negative - Negative POCT U KETONE (test code = - Negative - Negative 3258) POCT U UROBILI (test code = normal 0.2-1 3260) POCT U BILI (test code = - Negative - Negative 3261) POCT U BLD (test code = 3257) A POCT U COLOR (test code = yellow 3266) POCT U APPEAR (test code = cloudy 3267) Lab Interpretation (test code Abnormal = 74773-6) [facility] [id number] 22:25:00 Test Item Value Reference Range Interpretation Comments POCT PREG (test code = 1605) Negative On board controls acceptable with C Yes Line (test code = 3574) POCT PREG LOT # (test code = 3575) POCT PREG TEST DATE (test code = 3576) [facility] MOLECULAR [id number] 18:59:46 Test Item Value Reference Range Interpretation Comments POCT Molecular FluA (test code = Positive Negative A 19178-3) Lab Interpretation (test code = Abnormal 22614-6) [facility]
--- NOTE | 2023-03-30 19:35 | RAD REPORT ---
EXAM DESCRIPTION: RAD - Chest Single View - 03/30/2023 7:26 pm CLINICAL HISTORY: CHEST PAIN Chest pain. COMPARISON: <Comparisons> FINDINGS: Portable technique limits examination quality. The lungs are grossly clear. The heart is normal in size. No displaced fractures. IMPRESSION: No acute intrathoracic process suspected.
[2023-03-30 21:28] LABS: Absolute Lymphocytes (CBC) 3.5 K/uL (0.7-4.9); Hematocrit 45.4 % (36.0-45.0); Lymphocytes % 43.8 % (15.3-44.8); MCV 97.1 fL (80-100); MPV 9.8 fL (7.6-11.3); Platelets 252 thou/uL (152-406); RBC Red Blood Cell Count 4.68 M/uL (3.86-4.86)
[2023-03-30 21:49] LABS: Magnesium 2.2 mg/dL (1.6-2.4); Potassium 3.8 mEq/L (3.5-5.1); Troponin High Sensitivity 3.6 pg/mL (<58.9)
[2023-03-30 21:52] LABS: Thyroid Stimulating Hormone 6.3 uIU/mL (0.358-3.740)
--- NOTE | 2023-03-30 22:19 | ER ---
Nurse's Notes [facility] Name: Mara Ramos Age: 22 yrs Sex: Female : 2000 Arrival Date: 03/30/2023 Time: 16:40 Bed 16 Private MD: Diagnosis: Hypothyroidism, unspecified;Palpitations Presentation: 03/30 17:13 Chief complaint: Patient states: feel like he heart races and it's been fluctuating all iw day. Coronavirus screen: At this time, the client does not indicate any symptoms associated with coronavirus-19. Ebola Screen: Patient negative for fever greater than or equal to 101.5 degrees Fahrenheit, and additional compatible Ebola Virus Disease symptoms Patient denies exposure to infectious person. Patient denies travel to an Ebola-affected area in the 21 days before illness onset. No symptoms or risks identified at this time. Initial Sepsis Screen: Does the patient meet any 2 criteria? No. Patient's initial sepsis screen is negative. Does the patient have a suspected source of infection? No. Patient's initial sepsis screen is negative. Risk Assessment: Do you want to hurt yourself or someone else? Patient reports no desire to harm self or others. Onset of symptoms was March 30, 2023. 17:13 Method Of Arrival: Ambulatory iw 17:13 Acuity: NATHALIE 3 iw Triage Assessment: 21:52 General: Appears in no apparent distress. comfortable, Behavior is calm, cooperative. jw7 Pain: Denies pain. CLIENT PROFESSIONAL: 22:46 LMP N/A - control method jw7 Historical: - Allergies: 17:14 No Known Allergies; iw - Home Meds: 17:14 None [Active]; iw - PMHx: 17:14 None; iw - PSHx: 17:14 Appendectomy; iw - Immunization history:: Adult Immunizations up to date. - Social history:: Smoking status: Patient denies any tobacco usage or history of. Screenin:51 [facility] ED Fall Risk Assessment (Adult) History of falling in the last 3 months, jw7 including since admission No falls in past 3 months (0 pts) Score/Fall Risk Level 0 - 2 = Low Risk. Abuse screen: Denies threats or abuse. Denies injuries from another. Nutritional screening: No deficits noted. Tuberculosis screening: No symptoms or risk factors identified. Assessment: 21:20 General: Appears in no apparent distress. comfortable, Behavior is calm, cooperative. jw7 Pain: Denies pain. Neuro: No deficits noted. Polanco Agitation-Sedation Scale (RASS): 0 - Alert and Calm Level of Consciousness is awake, alert, obeys commands, Oriented to person, place, time, situation. Cardiovascular: No deficits noted. Reports "feels like my heart is having palpitations, and is fluttering, when this happens I get short of breath for a few seconds and then it goes away" Heart tones S1 S2 present Capillary refill < 3 seconds Clubbing of nail beds is absent JVD is absent Patient's skin is warm and dry. Respiratory: No deficits noted. Airway is patent Trachea midline Respiratory effort is even, unlabored, Respiratory pattern is regular, symmetrical. GI: No deficits noted. No signs and/or symptoms were reported involving the gastrointestinal system. Abdomen is flat, non-distended. : No deficits noted. No signs and/or symptoms were reported regarding the genitourinary system. EENT: No deficits noted. No signs and/or symptoms were reported regarding the EENT system. Derm: No deficits noted. No signs and/or symptoms reported regarding the dermatologic system. Skin is intact, is healthy with good turgor, Skin is dry, Skin is normal, Skin temperature is warm. Musculoskeletal: No deficits noted. No signs and/or symptoms reported regarding the musculoskeletal system. Circulation, motion, and sensation intact. Capillary refill < 3 seconds, Range of motion: intact in all extremities. 22:00 Reassessment: Patient appears in no apparent distress at this time. No changes from jw7 previously documented assessment. Patient and/or family updated on plan of care and expected duration. Pain level reassessed. Patient is alert, oriented x 3, equal unlabored respirations, skin warm/dry/pink. 22:45 Reassessment: Patient appears in no apparent distress at this time. No changes from jw7 previously documented assessment. Patient and/or family updated on plan of care and expected duration. Pain level reassessed. Patient is alert, oriented x 3, equal unlabored respirations, skin warm/dry/pink. Vital Signs: 21:30 BP 122 / 74; Pulse 77; Resp 13 S; Pulse Ox 100% on R/A; jw7 22:00 BP 117 / 72; Pulse 70; Resp 16 S; Pulse Ox 100% on R/A; jw7 22:30 BP 121 / 67; Pulse 67; Resp 16 S; Pulse Ox 100% on R/A; jw7 ED Course: 16:43 Patient arrived in ED. im 16:51 [facility]C [facility] kb 16:51 Tom Arango MD is Attending Physician. kb 17:13 Triage completed. iw 19:15 Missed attempt(s): 22 gauge in right antecubital area. bc6 19:28 XRAY Chest (1 view) In Process Unspecified. EDMS 20:52 Sadaf Garcia, RN is Primary Nurse. jw7 21:20 Initial lab(s) drawn, by me, sent to lab. EKG done, by ED staff, reviewed by Antonina ERNANDEZ. Inserted saline lock: 22 gauge in left antecubital area, using aseptic technique. Blood collected. 21:23 Basic Metabolic Panel Sent. jw7 21:23 CBC with Diff Sent. jw7 21:23 D-Dimer Sent. jw7 21:23 Magnesium Sent. jw7 21:23 NT PRO-BNP Sent. jw7 21:23 Troponin HS Sent. jw7 21:23 TSH Sent. jw7 21:51 Patient has correct armband on for positive identification. Bed in low position. Call jw7 light in reach. Side rails up X 1. 21:52 Arm band placed on. jw7 22:45 No provider procedures requiring assistance completed. IV discontinued, intact, jw7 bleeding controlled, No redness/swelling at site. Pressure dressing applied. 22:46 Provided Education on: discharge instructions. jw7 Administered Medications: No medications were administered Medication: 22:46 VIS not applicable for this client. jw7 Outcome: 22:19 Discharge ordered by . kb 22:45 Discharged to home ambulatory, with family. jw7 22:45 Condition: stable 22:45 Discharge instructions given to patient, Instructed on discharge instructions, follow up and referral plans. Demonstrated understanding of instructions, follow-up care. 22:47 Patient left the ED. jw7 Signatures: Dispatcher [employer] EDMS Antonina Lam FNP-C FNP-Ckb Williams, Irene, RN RN iw Sadaf Garcia, RN RN jw7 Lindy Vidal Itzel Corrections: (The following items were deleted from the chart) 58 21:54 General: Appears in no apparent distress. comfortable, Behavior is calm, jw7 cooperative, [facility] 21:54 Pain: Denies pain. jw7 jw7 : 21:54 Neuro: No deficits noted. Polanco Agitation-Sedation Scale (RASS): 0 - Alert and jw7 Calm Level of Consciousness is awake, alert, obeys commands, Oriented to person, place, time, situation, 7 21:54 Cardiovascular: No deficits noted. Reports "feels like my heart is having jw7 palpitations, and is fluttering, when this happens I get short of breath for a few seconds and then it goes away" Heart tones S1 S2 present Capillary refill < 3 seconds Clubbing of nail beds is absent JVD is absent Patient's skin is warm and dry. jw7 : 21:54 Respiratory: No deficits noted. Airway is patent Trachea midline Respiratory [facility] effort is even, unlabored, Respiratory pattern is regular, symmetrical, jw7 21:54 GI: No deficits noted. No signs and/or symptoms were reported involving the [facility] gastrointestinal system. Abdomen is flat, non-distended, jw7 : 21:54 : No deficits noted. No signs and/or symptoms were reported regarding the [facility] genitourinary system. jw7 : 21:54 EENT: No deficits noted. No signs and/or symptoms were reported regarding the [facility] EENT system. jw7 : 21:54 Derm: No deficits noted. No signs and/or symptoms reported regarding the [facility] dermatologic system. Skin is intact, is healthy with good turgor, Skin is dry, Skin is normal, Skin temperature is warm jw7 21:54 Musculoskeletal: No deficits noted. No signs and/or symptoms reported regarding [facility] the musculoskeletal system. Circulation, motion, and sensation intact. Capillary refill < 3 seconds, Range of motion: intact in all extremities, [facility]
--- NOTE | 2023-03-30 22:19 | EDPHYS ---
Physician Documentation [facility] Name: Mara Ramos Age: 22 yrs Sex: Female : 2000 Arrival Date: 03/30/2023 Time: 16:40 Bed 16 Private MD: ED Physician Tom Arango HPI: 03/31 01:17 This 22 yrs old Female presents to ER via Ambulatory with complaints of Palpitations, kb Chest Pressure. 01:17 The patient presents with a history of heart racing. Context: The symptoms occur at kb rest. Onset: The symptoms/episode began/occurred yesterday. Duration: The patient or guardian reports multiple episodes, that are intermittent, with no pattern. Modifying factors: The symptoms are aggravated by nothing. The symptoms are alleviated by nothing. Associated signs and symptoms: Pertinent positives: SOB. Severity of symptoms: At their worst the symptoms were mild moderate in the emergency department the symptoms are unchanged. The patient has not experienced similar symptoms in the past. The patient has not recently seen a physician. Patient reports intermittent palpitations that take her breath away at times that started yesterday. States she recently lost her grandmother so is not sure if stress is limited to do with it. Denies chest pain.. 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 - Social history:: Smoking status: Patient denies any tobacco usage or history of. ROS: 03/31 01:15 Constitutional: Negative for fever, chills, and weight loss. kb Cardiovascular: Positive for palpitations. Respiratory: Positive for shortness of breath. All other systems are negative. Exam: 01:15 Constitutional: This is a well developed, well nourished patient who is awake, alert, kb and in no acute distress. Head/Face: Normocephalic, atraumatic. ENT: Moist Mucous membranes Cardiovascular: Regular rate and rhythm with a normal S1 and S2. No gallops, murmurs, or rubs. No pulse deficits. Respiratory: Respirations even and unlabored. No increased work of breathing. Talking in full sentences Abdomen/GI: Soft, non-tender. No distention Skin: Warm, dry with normal turgor. Normal color. MS/ Extremity: Pulses equal, no cyanosis. Neurovascular intact. Full, normal range of motion. Neuro: Awake and alert, GCS 15, oriented to person, place, time, and situation. Moves all extremities. Normal gait. 01:15 ECG was reviewed by the Attending Physician. Vital Signs: 03/30 21:30 BP 122 / 74; Pulse 77; Resp 13 S; Pulse Ox 100% on R/A; jw7 22:00 BP 117 / 72; Pulse 70; Resp 16 S; Pulse Ox 100% on R/A; jw7 22:30 BP 121 / 67; Pulse 67; Resp 16 S; Pulse Ox 100% on R/A; jw7 MDM: 17:12 Patient medically screened. kb 03/31 01:16 Differential diagnosis: arrythmia, dehydration, stress disorder. Data reviewed: vital kb signs, nurses notes. Test considered but Not performed: CT: CT chest to rule out PE considered, negative D-dimer. Counseling: I had a detailed discussion with the patient and/or guardian regarding the historical points, exam findings, and any diagnostic results supporting the discharge/admit diagnosis, lab results, radiology results, the need for outpatient follow up, a family practitioner, to return to the emergency department if symptoms worsen or persist or if there are any questions or concerns that arise at home. 03/30 17:14 Order name: Basic Metabolic Panel; Complete Time: 22:13 kb 03/30 17:14 Order name: CBC with Diff; Complete Time: 21:35 kb 03/30 17:14 Order name: D-Dimer; Complete Time: 21:35 kb 03/30 17:14 Order name: Magnesium; Complete Time: 22:13 kb 03/30 17:14 Order name: NT PRO-BNP; Complete Time: 22:13 kb 03/30 17:14 Order name: Troponin HS; Complete Time: 22:13 kb 03/30 17:14 Order name: TSH; Complete Time: 22:13 kb 03/30 21:54 Order name: T4 Free; Complete Time: 22:13 EDMS 03/30 17:14 Order name: XRAY Chest (1 view); Complete Time: 19:48 kb 03/30 17:14 Order name: EKG; Complete Time: 18:11 kb 03/30 17:14 Order name: Cardiac monitoring; Complete Time: 21:23 kb 03/30 17:14 Order name: EKG - Nurse/Tech; Complete Time: 21:23 kb 03/30 17:14 Order name: IV Saline Lock; Complete Time: 21:23 kb 03/30 17:14 Order name: Labs collected and sent; Complete Time: :23 kb 03/30 17:14 Order name: O2 Per Protocol; Complete Time: :23 kb 03/30 17:14 Order name: O2 Sat Monitoring; Complete Time: :23 kb EC:15 Rate is 88 beats/min. Rhythm is regular. QRS [place] is Normal. [place] interval is normal at kb 120 msec. QRS interval is normal at 80 msec. QT interval is normal at 440 msec. Administered Medications: No medications were administered Disposition Summary: 03/30/23 22:19 Discharge Ordered Location: Home kb Condition: Stable kb Diagnosis - Hypothyroidism, unspecified kb - Palpitations kb Followup: kb - With: Emergency Department - When: As needed - Reason: Worsening of condition Followup: kb - With: Private Physician - When: 2 - 3 days - Reason: Recheck today's complaints, Continuance of care, Re-evaluation by your physician Discharge Instructions: - Discharge Summary Sheet kb - Hypothyroidism kb - Palpitations, [id number] kb Forms: - Medication Reconciliation Form kb - Thank You Letter kb - Antibiotic Education kb - Prescription Opioid Use kb - Patient Portal Instructions kb - Leadership Thank You Letter kb Signatures: Dispatcher [employer] EDAntonina Segovia, FAMILY AND CONSUMER SCIENCE PROFESSOR-C FAMILY AND CONSUMER SCIENCE PROFESSOR-Alka Gilliam, RN RN iw Sadaf Garcia, RN RN jw7 Corrections: (The following items were deleted from the chart) 03/30 18:55 18:11 Chest Single View ordered. EDKY EDKY
[2023-03-31 01:15] VITALS: O2SAT 100
[2023-03-31 01:17] VITALS: BP 121/67
--- NOTE | 2023-03-31 16:28 | EKG ---
Test Date: 2023-03-30 Test Time: 21:20:16 Health Care Aide: DIANA MEASUREMENT RESULTS: Intervals: Rate: 88 DC: 120 QRSD: 80 QT: 364 QTc: 440 [place]: P: 66 DC: 120 QRS: 82 T: 39 INTERPRETIVE STATEMENTS: Normal sinus rhythm with sinus arrhythmia Normal ECG No previous ECG available for comparison Electronically Signed On 03-31-23 16:25:53 CDT by Nicholas Kelly
== END 2023-03-30 22:47 | disposition home or self-care (01) ==
LOC: ER 16:40
DX: E03.9 Hypothyroidism, unspecified (principal); R00.2 Palpitations; R07.89 Other chest pain
CPT/HCPCS: 36415; 71045; 80048; 83735; 83880; 84439; 84443; 84484; 85025; 85379; 93005; 99284